=== PATIENT | male | born 1940 | race Caucasian/White ===

== ENCOUNTER 2016-07-16 08:57 | Emergency (ER) | payer MEDICARE, OTHER ==
[~2016-07-16] VITALS: Ht 185.4 cm; Wt 88.7 kg
[~2016-07-16 08:57] MED LIST: ASPI-110 PO; COZA25TA PO; METO25TA3 PO; METR28.4 TOPICAL; XARE20TA PO
[2016-07-16 09:02] VITALS: BP 157/78; PULSE 69; RESP 16; TEMP 98.5; O2SAT 98
--- NOTE | 2016-07-16 09:25 | PD ---
HPI Chief Complaint: Musculoskeletal Complaint Time Seen by Provider: 09:12 Travel History International Travel<30 days: No Contact w/Intl Traveler<30days: No Traveled to known affect area: No History of Present Illness HPI This 75-year-old man who presents emergent arm for right elbow swelling for the past hour or 2. Thinks maybe got bit by something last night is not sure. Feels overall well. Physical little tight but is not really hurting him. He is a history of A. fib and is on Xarelto. No real elbow trauma, or overuse injuries. No other complaints. History Past Medical History Narrative Medical A. fib Tetanus Vaccination: Unknown Social History Alcohol Use: Yes (occ) Tobacco Use: Yes (1 ppd) Allergies-Medications (Allergen,Severity, Reaction): Coded Allergies: No Known Allergies (Verified , 07/16/16) Reported Meds & Prescriptions Reported Meds & Active Scripts Active Reported Xarelto (Rivaroxaban) 20 Mg Tab 20 Mg PO DAILY Cozaar (Losartan Potassium) 25 Mg Tab 25 Mg PO DAILY Metoprolol Tartrate 25 Mg Tab 25 Mg PO BID Review of Systems Except as stated in HPI: all other systems reviewed are Neg Physical Exam Narrative GENERAL: Well-appearing 75-year-old man, no acute distress. SKIN: Warm and dry. CARDIOVASCULAR: Warm and well perfused. RESPIRATORY: Normal rate and effort. MUSCULOSKELETAL: Focused examination of the right upper extremity reveals fluctuant swelling of the olecranon bursa. There is no erythema redness or warmth. Full range of motion. No significant tenderness. NEUROLOGICAL: Awake and alert. No gross deficits. Data Data Last Documented VS Vital Signs Date Time Temp Pulse Resp B/P Pulse Ox O2 Delivery O2 Flow Rate FiO2 07/16/16 09:02 98.5 69 16 157/78 98 MDM Medical Decision Making Medical Screen Exam Complete: Yes Emergency Medical Condition: Yes Differential Diagnosis Hemorrhagic bursitis, inflammatory bursitis, infectious bursitis, other Narrative Course Medical decision making Is a 75-year-old man who presents to the emergency department complaining of swelling to the right elbow. He has an effusion in the bursa. There is no evidence of inflammation. Suspect he may have hemorrhagic effusion. Possibly inflammatory. He is on Xarelto at this point. Recommend compression with an Angel wrap, avoid NSAIDs due to Xarelto use. Outpatient follow-up. Counseled to return if there is any erythema redness or evidence of infection. Diagnosis Primary Impression: Effusion of right olecranon bursa Patient Instructions: General Instructions Departure Forms: Tests/Procedures Additional Instructions: Look at the right elbow at least twice a day. Return the emergency department for any erythema redness or warmth. Follow-up with your primary doctor in 5-7 days. Wear Angel wrap at all times except when showering to encourage resolution of the fluid in the bursa. The Angel wrap does not need to be very tight. Med/Other Pt SpecificInfo: No Change to Meds Disposition: 01 DISCHARGE HOME Condition: Stable Shubham Julian MD Jul 16, 2016 09:25
[2016-10-27] MEDS ORDERED: LOSA50TA PO (14:08)
[2016-10-27] MEDS ORDERED: PNEU13P IM (14:22)
[2016-10-27] MEDS ORDERED: TRIA40P I-ARTICULR (14:44)
== END 2016-07-16 09:36 | disposition home or self-care (01) ==
LOC: PHEFT 08:57
DX: M25.421 Effusion, right elbow (principal); I48.91 Unspecified atrial fibrillation; F17.210 Nicotine dependence, cigarettes, uncomplicated
CPT/HCPCS: 99283

== ENCOUNTER → 2016-10-01 | Day surgery (SDC) | payer MEDICARE, OTHER ==
[~2016-10-01] MED LIST changes: -ASPI-110 PO; +INCOBOTULINUMTOXINA 100 UNITS VIAL IM ONE; +LOSA50TA PO; -METR28.4 TOPICAL; +PNEU13P IM; +SODIUM CHLORIDE 0.9% 10 ML VIAL ONE; +TRIA40P I-ARTICULR
--- NOTE | 2016-10-04 13:16 | M6 ---
cc: ANIBAL MYLES M.D. DATE: 10/01/2016. DATE OF : 1940. PROCEDURE PERFORMED: Injection botulinum toxin type A (Xeomin) left trapezius and posterior cervical musculature. 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 DESCRIPTION OF THE PROCEDURE IN DETAIL: History and physical was completed and signed. Consent was signed. Procedure site was marked. Medications were listed and reconciled. Pain score was recorded. Allergies were noted. Time out was taken. Fluoroscopy time was recorded where applicable. Blood pressure cuff, pulse oximeter were applied. The patient was placed in the sitting position. The skin over the left trapezius and cervical area was prepped with alcohol. The areas of greatest spasticity were identified. A 27-gauge needle was used to inject a total of 150 units of Xeomin at six different locations corresponding to the areas of greatest spasticity. Following this, the patient was observed in the recovery area with stable vital signs neurologically intact. W. MD BREEZY Martinez/OSKAR /7:25 AM /1:15 PM
== END | disposition home or self-care (01) ==
LOC: PHSDC 06:36
PROVIDERS: ATTEND Pain Medicine Interventional Pain Medicine
DX: G24.1 Genetic torsion dystonia (principal); M62.830 Muscle spasm of back
CPT/HCPCS: 64616; J0588